=== PATIENT | male | born 1990 | race Native Hawaiian/Other Pacific Islander ===

== ENCOUNTER 2016-07-19 07:14 | Emergency (ER) | payer OTHER ==
[~2016-07-19] VITALS: Ht 188 cm; Wt 113.4 kg
[2016-07-19 07:23] VITALS: TEMP 99.1
[2016-07-19 08:15] VITALS: BP 140/78
== END 2016-07-19 08:15 | disposition home or self-care (01) ==
LOC: ED 07:14
DX: J06.9 Acute upper respiratory infection, unspecified (principal)
CPT/HCPCS: 99281

== ENCOUNTER 2016-11-13 17:41 | Emergency (ER) | payer OTHER ==
[~2016-11-13] VITALS: Ht 188 cm; Wt 64.0 kg
[2016-11-13 17:45] VITALS: TEMP 99.1
[2016-11-13 18:31] VITALS: BP 138/82
== END 2016-11-13 18:48 | disposition home or self-care (01) ==
LOC: ED 17:41
DX: S70.362A Insect bite (nonvenomous), left thigh, initial encounter (principal); W57.XXXA Bitten or stung by nonvenomous insect and other nonvenomous arthropods, initial encounter
CPT/HCPCS: 96372; 99282; J0696